=== PATIENT | female | born 1980 | race Two or more races ===

== ENCOUNTER 2020-11-26 08:50 | Outpatient (CLI) | payer OTHER | END 2020-11-26 09:09 | disposition home or self-care (01) | LOC: MAMO-SONO 08:50 | PROVIDERS: ATTEND Student in an Organized Health Care Education/Training Program | DX: N60.11 Diffuse cystic mastopathy of right breast (principal); N60.12 Diffuse cystic mastopathy of left breast; Z12.31 Encounter for screening mammogram for malignant neoplasm of breast ==

== ENCOUNTER 2020-12-02 14:41 | Outpatient (CLI) | payer OTHER | END 2020-12-02 14:55 | disposition home or self-care (01) | LOC: SONOGRAMA 14:41 → MAMO-SONO 14:45 → SONOGRAMA 14:55 | PROVIDERS: ATTEND Obstetrics & Gynecology | DX: N84.0 Polyp of corpus uteri (principal); R10.2 Pelvic and perineal pain ==